=== PATIENT | male | born 1955 | race Caucasian/White ===

== ENCOUNTER 2018-03-29 05:47 | Observation (INO) | payer OTHER ==
[~2018-03-29] VITALS: Ht 165.1 cm; Wt 65.5 kg
[~2018-03-29 05:47] MED LIST: LEXAPRO10 MG PO; TRAMADOL HCL50 MG PO
[2018-03-29 06:32] LABS: HEMATOCRIT 40.6 % (38.0-50.0); HEMOGLOBIN 14.4 G/DL (12.5-16.6); MCH 32.7 PG (29.0-34.0); MCHC 35.5 G/DL (30.0-36.0); MCV 92.3 FL (86-99); RBC DIS.WIDTH-CV 13.2 % (11.8-14.6); RBC DIS.WIDTH-SD 44.6 % (39-53); WHITE BLOOD COUNT 12.6 K/uL (4.1-10.2)
[2018-03-29 06:33] LABS: CHLORIDE 109 mEq/L (99-109); POTASSIUM 4.3 mEq/L (3.7-5.4); SODIUM 138 mEq/L (136-147)
[2018-03-29 06:34] LABS: GLUCOSE 93 mg/dL (70-99)
[2018-03-29 06:38] LABS: CREATININE 1.3 mg/dL (0.6-1.3); GFR ESTIMATE (CALCULATED) > 59 mL/min/ (58.99-99999)
[2018-03-29 06:39] LABS: UREA NITROGEN (BUN) 18 mg/dL (9-23)
[2018-03-29 07:07] LABS: PLATELET COUNT 340 K/uL (156-360)
[2018-03-29 07:09] LABS: TROP-I INTERPRETATION NEGATIVE; TROPONIN-I 0.05 ng/mL (0.0-0.30)
[2018-03-29 09:06] VITALS: BP 111/79
[2018-03-29 11:33] VITALS: BP 116/60
[2018-03-29 13:30] LABS: TROP-I INTERPRETATION NEGATIVE; TROPONIN-I 0.09 ng/mL (0.0-0.30)
[2018-03-29 15:26] VITALS: BP 124/67
[2018-03-29] MEDS ORDERED: ASPIR-LOW81 MG PO (18:01)
[2018-03-29] MEDS ORDERED: IMDUR30 MG PO (18:02)
[2018-03-29] MEDS ORDERED: NICOTINE PATCH1 EAC2 TD (18:02)
[2018-03-29] MEDS ORDERED: AMLODIPINE BESYL5 MG PO (18:02)
[2018-03-29 19:46] LABS: TROP-I INTERPRETATION NEGATIVE; TROPONIN-I 0.07 ng/mL (0.0-0.30)
[2018-03-29 19:47] VITALS: BP 127/83
== END 2018-03-29 20:18 | disposition home or self-care (01) ==
LOC: EME 05:47 → EDOF 08:02 → 4SOUTH 08:02 → ENRESERV 08:09 → 4SOUTH 08:55
PROVIDERS: Hospitalist
DX: R07.9 Chest pain, unspecified (principal); I10 Essential (primary) hypertension; R61 Generalized hyperhidrosis; F17.210 Nicotine dependence, cigarettes, uncomplicated; D72.829 Elevated white blood cell count, unspecified; K21.9 Gastro-esophageal reflux disease without esophagitis; Z87.11 Personal history of peptic ulcer disease; Z82.49 Family history of ischemic heart disease and other diseases of the circulatory system; Z90.81 Acquired absence of spleen
CPT/HCPCS: 71046; 80048; 84484; 85027; 93005; 99281; 99284; G0378; J1644